=== PATIENT | female | born 1960 | race Caucasian/White ===

== ENCOUNTER 2021-05-26 08:43 | Outpatient (REF) | payer OTHER, SELFPAY ==
--- NOTE | 2021-05-28 13:21 | MHC.AU.ANO ---
Adult Audiological Evaluation Date of Visit: 05/26/21 Grounds Caretaker Used: Not Applicable Reason for Appointment: Audiologic evaluation due to question of decreased hearing ability. Yecenia reports her family has noticed she frequently asks for speech to be repeated. She notes both her parents had significant hearing loss when she was growing up so she is used to increasing the volume of the television and uses the closed caption, and she says she usually speaks loudly with hand gestures. Yecenia thinks allergy symptoms may also cause more hearing difficulty. Does patient feel they have a hearing loss?: Yes If Yes, Which Ear?: Both Ears Has hearing been tested previously?: No Hearing Handicap Inventory: HHIE SCORE: 10 Based on HHIE score, patient has: Mild to moderate perceived hearing handicap Ear History: Family History of Hearing Loss?: Yes: Parents History of occupational noise exposure?: Yes: [employer] work for [employer] during college History: History: No Medical History: Medical History: Breast cancer treated only with surgery, Headache, Heart Problems (Atrial Fibrilation), High Blood Pressure, Migraines Medication List: Yany, Tamoxifen, Eliquis, Famotidine, Metoprolol, Losartan, Vitamin, Tylenol and Lorazepam as needed Otoscopy: Right Ear: Unremarkable Left Ear: Unremarkable Tympanometry: Tympanometry performed due to: To assess integrity of the middle ear system Right Ear: Normal Middle Ear System (Type A) Left Ear: Normal Middle Ear System (Type A) Otoacoustic Emissions Frequency Range Used: 1.6-8 kHz Right Ear Results: Present 4812-3146 Hz, Absent 8000 Hz Analysis: Present emissions suggest normal cochlear function Left Ear Results: Present 6656-0848 Hz, Absent 8000 Hz Analysis: Present emissions suggest normal cochlear function Hearing Evaluation: Transducer(s) Used: Circumaural Headphones Method: Conventional Audiometry Stimuli Used: Pure Tones Right Ear: Description of Hearing: Normal hearing thresholds 250-8000 Hz Left Ear: Description of Hearing: Normal hearing thresholds 250-8000 Hz Speech Recognition Threshold (SRT): Method Used: Monitored Live Voice Stimuli Used: Spondee Words Right Ear: 5 dB HL Left Ear: 5 dB HL Word Discrimination: Method: Recorded Lists Word Lists Used: NU-6 Right Ear: 100% at 50 dB HL Left Ear: 100% at 50 dB HL QuickSIN: Binaural Quick SIN Test: 1 dB SNR Loss falls within the normal range suggesting Yecenia does not experience any more difficulty than expected understanding speech with increasing levels of background noise in this controlled test environment. Interpretation of Results: Given the normal hearing thresholds and speech understanding in both quiet and in noise, she may be increasing the volume of the television, using hand gestures, and may be a more visual person because she grew up with hearing impaired parents. Discussed the difference between hearing and listening and the role of attention plays with these skills. Discussed and provided a handout of communication strategies to use to improve speech understanding when needed. Recommendations: No further audiological action is indicated at this time. Audiologic re-evaluation if changes in hearing are suspected Diagnosis: Primary Diagnosis: H93.293 (Concern of) Abnormal Auditory Perception Services Performed: Comprehensive Audiological Evaluation (CPT 60439) Diagnostic Otoacoustic Emissions (CPT 47877, 26+TC) Tympanometry (CPT 40010) Signature: Provider: Mary Ellen Gil, CCC-A
== END 2021-05-26 08:44 | disposition home or self-care (01) ==
LOC: HO.SH 08:43
PROVIDERS: PCP Internal Medicine; Visit Provider Internal Medicine
DX: H93.293 Other abnormal auditory perceptions, bilateral (principal)
CPT/HCPCS: 92557; 92567; 92588

== ENCOUNTER 2025-02-25 10:25 | Outpatient (AMB) | payer OTHER, SELFPAY ==
--- NOTE | 2025-02-25 10:55 | MHC.PC.OV ---
Vital Signs 02/25/25 11:02 Height 5 ft 3.7 in Weight 213 lb BMI 36.9 BP 110/68 Blood Pressure Location Rt brachial Position Sitting Respiration 14 Pulse 67 Pulse Source Pulse Oximeter Temp 98.8 F Temp Source Oral Pulse Oximetry (%) 97 Oxygen Delivery Method Room Air Intake Visit Reasons: est care Intake Note: New patient visit Electrical Controls Engineer Required: No Allergies cortisone Allergy (Intermediate, Verified 02/25/25 10:59) Chest Pain Tobacco use date assessed: 02/25/25 Dental Screening Dental Screen Date: 02/25/25 Did you have a dental visit in the last 12 months?: Yes Did you have a dental problem in the last 6 months where you did not have access to dental care?: No Was dental information given to patient?: Patient has dentist HPI HPI Comments History of Present Illness Details The patient is a 64 year old female with a past medical history of afibrillation, hypertension, hyperlipidemia TARIQ, depression/anxiety, presenting to [facility] care CV: On eliqus, losartan, lopressor, simvastatin. Follows with PVC. Denies chest pain, shortness of breath TARIQ: on cpap. Heme/Onc: History of breast cancer. Breast surgeon, oncologist released her from surveillance. Still gets annual mammograms, she is slightly overdue MSK: Increasing pain in bilateral wrist, base of thumb and as well in lateral dorsal wrist. Likes to hill/knit but has had to stop. She is intolerant of cortisone injections. Would like to consider ortho GERD is stable on omeprazole. BH was started on lexapro when she was taking care of her father who passed. She may try to come off the medication. History of abnormal tfts. She has been intolerant of levothyroxine in the past-palpitations Mammo 09/2023 Colonoscopy 2021. ROS see HPI PHYSICAL EXAM: GENERAL: Alert and oriented x 3. NAD EYES: EOMI. Anicteric. HENT: Moist mucous membranes. No scleral icterus. No cervical lymphadenopathy. LUNGS: Clear to auscultation bilaterally. CARDIOVASCULAR: Regular rate and rhythm. No murmur. No JVD. ABDOMEN: Soft, non-tender +bs EXTREMITIES: No edema. Non-tender. SKIN: No rashes or lesions. Warm. NEUROLOGIC: No focal neurological deficits. CN II-XII grossly intact PSYCHIATRIC: Cooperative. 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 1. Little interest or pleasure in doing things: not at all 2. Feeling down, depressed, or hopeless: not at all 3. Trouble falling or staying asleep, or sleeping too much: more than half the days 4. Feeling tired or having little energy: more than half the days 5. Poor appetite or overeating: more than half the days 6. Feeling bad about yourself - or that you are a failure or have let yourself or your family down: several days 7. Trouble concentrating on things, such as reading the newspaper or watching television: not at all 8. Moving or speaking so slowly that other people could have noticed. Or the opposite - being so fidgety or restless that you have been moving around a lot more than usual: not at all 9. Thoughts that you would be better off or of hurting yourself in some way: not at all Total score: 7 Depression Screening Interpretation: Positive Depression Screening Done: Yes 19236 - PHQ-9 Billing: Yes Source: Developed by Drs. Ramiro Boyd, Terri Zhang, Giancarlo Otoole and colleagues, with an educational ed from [employer]. Thrive Questionnaire Date Thrive assessed: 02/19/25 I am a: Patient What is your living situation today?: I have a steady place to live Within the past 12 months, did the food you bought not last and you didn't have the money to get more?: Never true Within the past 12 months, did you worry whether your food would run out before you got money to buy more?: Never true Do you have trouble paying for medicines?: No Do you have trouble getting transportation to medical appointments?: No Do you have trouble paying your heating and electricity bill?: No Do you have trouble taking care of your child, family member or friend?: No Do you have trouble with day-to-day activities such as bathing, preparing meals, shopping, managing finances, etc.?: No Are you currently unemployed and looking for a job?: No Are you interested in more education?: No Please select the resources that you would like help with: None Currently or been in a relationship where the following occur: No concerns reported THRIVE Score: 0 AUDIT C Alcohol Use Questionnaire (AUDIT-C) 1. How often do you have a drink containing alcohol?: Never 2. How many drinks containing alcohol do you have on a typical day when you are drinking?: 1 or 2 3. How often do you have six or more drinks on one occasion?: Never Total Score: 0 FREDDIE-7 AMB Questionnaire FREDDIE-7 Date FREDDIE - 7 assessed: 02/25/25 Feeling nervous, anxious, or on edge: 1 = Several days Not being able to stop or control worryin = Not at all Worrying too much about different things: 1 = Several days Trouble relaxin = Not at all Being so restless that it is hard to sit still: 0 = Not at all Becoming easily annoyed or irritable: 0 = Not at all Feeling afraid as if something awful might happen: 0 = Not at all Total FREDDIE-7 score (0-4 normal; 5-9 mild; 10-14 moderate; 15-21 severe): 2 Source: Developed by Drs. Ramiro Boyd, Terri Zhang, Giancarlo Otoole and colleagues, with an educational ed from [employer]. FREDDIE-7 Assessment Billing FREDDIE-7 Assessment Tool: FREDDIE-7 Assessment 28385 Physical exam (Primary Care) Vital Signs: Last Vital Signs Temp 98.8 F 02/25/25 11:02 Pulse 67 02/25/25 11:02 Resp 14 02/25/25 11:02 BP 110/68 02/25/25 11:02 Pulse Ox 97 02/25/25 11:02 Oxygen Delivery Method Room Air 02/25/25 11:02 BMI result Body Mass Index 36.9 Tobacco/Smoking Status: Tobacco use Status Tobacco use date assessed 02/25/25 02/25/25 11:11 Patient Tobacco Use Status Never used Tobacco 02/25/25 11:11 e-Cigarette/Vaping Use Never Used 02/25/25 11:11 PHQ-9: PHQ-9 Score PHQ-9: Total score 7 02/25/25 16:39 Depression Screening Interpretation: Positive Thrive Assessment: Date of Thrive Assessment Date Thrive assessed 02/19/25 02/25/25 11:11 Currently or been in a relationship where the following occur: No concerns reported Coding Level of Care Code New Pt Level 4 (89120) Complex EM visit Add On G2211 Diagnoses Atrial fibrillation and flutter I48.91; I48.92 Prediabetes R73.03 Hypothyroidism, unspecified type E03.9 Hypothyroidism type: unspecified 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 CMC (carpometacarpal) synovitis M65.939 Additional Codes FREDDIE-7 Assessment Billing - FREDDIE-7 Assessment Tool: FREDDIE-7 Assessment 09377 ([id number]) PHQ-9 - 05181 - PHQ-9 Billing: Yes ([id number]) Assessment & Plan Assessment & Plan (1) Atrial fibrillation and flutter: Code(s): I48.91 - Unspecified atrial fibrillation; I48.92 - Unspecified atrial flutter Category: Medical (2) Prediabetes: Code(s): R73.03 - Prediabetes Category: Medical (3) Hypothyroid: Code(s): E03.9 - Hypothyroidism, unspecified Category: Medical Qualifiers: Hypothyroidism type: unspecified Qualified Code(s): E03.9 - Hypothyroidism, unspecified (4) History of ductal carcinoma in situ (DCIS) of breast: Code(s): Z86.000 - Personal history of in-situ neoplasm of breast Category: Medical (5) CMC (carpometacarpal) synovitis: Code(s): M65.939 - Unspecified synovitis and tenosynovitis, unspecified forearm Category: Medical Plan 64 yo to establish care past medical, surgical, social reviewed CV-continue cardiology follow up. bp controlled BH -she consider stopping medication by decreasing to every other day and stopping after one to two weeks She has CMC as well as lateral wrist pain. referral placed Labs ordered Hypothyroid-previously sensitive to medications Orders: Orders MM screening mammo BI Today Z12.31 - Encounter for screening mammogram for malignant neoplasm of breast Hemoglobin A1c Today E03.9 - Hypothyroidism, unspecified, R73.03 - Prediabetes Complete Blood Count Auto Diff 6 Months E03.9 - Hypothyroidism, unspecified, I48.91 - Unspecified atrial fibrillation, I48.92 - Unspecified atrial flutter, K63.5 - Polyp of colon, R73.03 - Prediabetes Lipid Panel 6 Months E03.9 - Hypothyroidism, unspecified, I48.91 - Unspecified atrial fibrillation, I48.92 - Unspecified atrial flutter, K63.5 - Polyp of colon, R73.03 - Prediabetes Hemoglobin A1c 6 Months E03.9 - Hypothyroidism, unspecified, I48.91 - Unspecified atrial fibrillation, I48.92 - Unspecified atrial flutter, K63.5 - Polyp of colon, R73.03 - Prediabetes TSH reflex Free T4 Today E03.9 - Hypothyroidism, unspecified, R73.03 - Prediabetes Thyroid Peroxidase Antibodies Today E03.9 - Hypothyroidism, unspecified, R73.03 - Prediabetes Comprehensive Met. Panel 6 Months E03.9 - Hypothyroidism, unspecified, I48.91 - Unspecified atrial fibrillation, I48.92 - Unspecified atrial flutter, K63.5 - Polyp of colon, R73.03 - Prediabetes TSH reflex Free T4 6 Months E03.9 - Hypothyroidism, unspecified, I48.91 - Unspecified atrial fibrillation, I48.92 - Unspecified atrial flutter, K63.5 - Polyp of colon, R73.03 - Prediabetes Referrals Dermatology Referral L98.9 - Disorder of the skin and subcutaneous tissue, unspecified Gastroenterology Referral K63.5 - Polyp of colon Orthopedics Referral M65.939 - Unspecified synovitis and tenosynovitis, unspecified forearm Medications: New simvastatin 20 mg PO BEDTIME 90 tabs 3RF
[2025-02-25 11:02] VITALS: BP 110/68; PULSE 67; RESP 14; TEMP 37.1; O2SAT 97; BMI 36.9
--- OUTSIDE RECORDS SUMMARY | 2025-02-25 11:07 | XMS_ITS | Clinical Summary ---
Author Organization [facility] Address [address] [place] [address] Care Team Providers Care Seed Tester Name Role Phone Sveta Joshi Primary Care Provider Zara vailable Allergies Active Allergy Reactions Criticality Noted Date Comments Cortisone 12/02/2022 Tape 12/02/2022 Medications Medication Sig Dispensed Refills Start Date End Date Status metoprolol tartrate (LOPRESSOR) 25 MG tablet 0 12/01/2018 Active ELIQUIS 5 MG TABS tablet 0 09/07/2018 Active MAPAP 500 MG tablet TK 2 TS PO TID 0 11/22/2018 A ctive Melatonin 1 MG TABS tablet Take 1 tablet (1 mg total) by mouth every night at bedtime. 0 Active losartan (COZAAR) 100 MG tablet Take 1 tablet (100 mg total) by mouth daily. 0 Active Respiratory Therapy Supplies (CARETOUCH CPAP & BIPAP HOSE) MISC by Does not apply route. 0 Active famotidine (PEPCID) 20 MG tablet Take 1 tablet (20 mg total) by mouth 2 (two) times a day. 0 Active escitalopram (LEXAPRO) 5 MG tablet Take 1 tablet (5 mg total) by mouth daily. 0 Active chlorthalidone (HYGROTON) 25 MG tablet Take 1 tablet (25 mg total) by mouth daily. 0 Active simvastatin (ZOCOR) tablet 20 mg Take 1 tablet (20 mg total) by mouth every night at bedtime. 0 Active omeprazole (PriLOSEC) 20 MG capsule Take 1 capsule (20 mg total) by mouth daily. 0 Active docusate sodium (COLACE) 100 MG capsule Take 1 capsule (100 mg total) by mouth 2 (two) times a day. 0 Active cetirizine (Allergy Relief Cetirizine) 10 MG tablet Take 1 tablet (10 mg total) by mouth daily. 0 Active Multiple Vitamins-Minerals (Centrum Specialist Heart) TABS Take by mouth. 0 Active tamoxifen (NOLVADEX) 20 MG tablet TAKE 1 TABLET BY MOUTH EVERY DAY 90 tablet 2 09/20/2023 Active Active Problems No known active problems Family History Medical History Relation Name Comments Heart disease Brother Heart disease Father Hypertension Father Cancer Mother Diabetes Mother Heart disease Mother Rheumatologic disease Mother Rheumatologic disease Sister Relation Name Status Comments Brother Father Mother Sister Social History Tobacco Use Types Packs/Day Years Used Date Smoking Tobacco: Never Smokeless Tobacco: Never Alcohol Use Standard Drinks/Week Comments No 0 (1 standard drink = 0.6 oz pur e alcohol) Sex and Gender Information Value Date Recorded Sex Assigned at Not on file Gender Identity Not on file Sexual Orientation Not on file Job Start Date Occupation Industry Not on file Not on file Not on file Last Filed Vital Signs Vital Sign Reading Time Taken Comments Blood Pressure 122/59 12/02/2023 11:35 AM EDT Pulse 64 12/02/2023 11:35 AM EDT Temperature 37.2 C (99 F) 12/02/2023 11:35 AM EDT Respiratory Rate - - Oxygen Saturation 96% 12/02/2023 11:35 AM EDT Inhaled Oxygen Concentration - - Weight 88.9 kg (196 lb) 12/02/2023 11:35 AM EDT Height 162.6 cm (5' 4 ) 12/02/2023 11:35 AM EDT Body Mass Index 33.64 12/02/2023 11:35 AM EDT Plan of Treatment Health Maintenance Due Date Last Done Comments Hepatitis C Screening 1961 COVID-19 Vaccine (#1) 06/19/1962 Depression Screening 1973 BMI Counseling 12/19/1979 Preventative Health Evaluation 12/19/1979 Cervical Cancer Screening (Pap Smear) 1982 Colon Cancer Screening (Colonoscopy) 2006 Breast Cancer Screening (Mammogram) 12/19/2011 Shingrix-Zoster Vaccine (1 of 2) 12/19/2011 Influenza Vaccine (Season Ended) 2025 05/25/2023, 05/08/2021, 06/18/2020, Additional history exists DTap / Tdap / Td (2 - Td or Tdap) 07/27/2028 07/27/2018 RSV Adult > 60+ Yrs or (1 - 1-dose 75+ series) 2036 Hepatitis B Vaccines Aged Out No long er eligible based on patient's age to complete this topic Pneumococcal Vaccine Aged Out No long er eligible based on patient's age to complete this topic RSV Ped < 20 months Aged Out No longe r eligible based on patient's age to complete this topic Care Teams Seed Tester Relationship Specialty Start Date End Date Sveta Joshi PCP - General Internal Medicine 11/27/18
== END 2025-02-25 11:43 | disposition home or self-care (01) ==
LOC: HO.HMCFM 10:26
PROVIDERS: PCP Internal Medicine; Visit Provider Internal Medicine
DX: I48.91 Unspecified atrial fibrillation (principal); I48.92 Unspecified atrial flutter; R73.03 Prediabetes; E03.9 Hypothyroidism, unspecified; Z86.000 Personal history of in-situ neoplasm of breast; M65.939 Unspecified synovitis and tenosynovitis, unspecified forearm

== ENCOUNTER → 2025-02-25 10:25 | Outpatient (BNVA) | payer OTHER, SELFPAY | PROVIDERS: PCP Internal Medicine; Visit Provider Internal Medicine | DX: I48.91 Unspecified atrial fibrillation (principal); R73.03 Prediabetes; E03.9 Hypothyroidism, unspecified; Z86.000 Personal history of in-situ neoplasm of breast; M65.939 Unspecified synovitis and tenosynovitis, unspecified forearm | CPT/HCPCS: 96127; 99202 ==

== ENCOUNTER 2025-02-28 11:13 | Outpatient (REF) | payer OTHER, SELFPAY ==
--- OUTSIDE RECORDS SUMMARY | 2025-02-28 12:02 | XMS_ITS | Encounter Summary ---
Author Organization [facility] Address [address] [place] [address] Care Team Providers Care Sheep Or Calf Grader Name Role Phone Yuki Cisse MD Primary Care Provider Reason for Visit * Reason Onset Date Comments information needed 02/26/2025 Encounter Details Date Type Department Care Team (Late st Contact Info) Description 02/26/2025 Telephone Gastroenterology - [place] [address] [facility] [address] [place] [id number] Beatrice Feliz MD [address] [facility] [address] [place], [place] [phone] information needed Social History Tobacco Use Types Packs/Day Years Used Date Smoking Tobacco: Never Smokeless Tobacco: Never Alcohol Use Standard Drinks/Week Comments No 0 (1 standard drink = 0.6 oz pur e alcohol) Comments Unknown Sex and Gender Information Value Date Recorded Sex Assigned at Not on file Legal Sex Female 11:23 PM EST Gender Identity Not on file Sexual Orientation Not on file documented as of this encounter Progress Notes * Chiquita Agustin - 02/27/2025 10:18 AM EDT 2nd request faxed for med list * Chiquita Agustin - 02/26/2025 2:47 PM EDT Records received from [facility], missing med list, faxed & placed in missing folder - [place] documented in this encounter Plan of Treatment Not on file documented as of this encounter Visit Diagnoses Not on filedocumented in this encounter Care Teams Sheep Or Calf Grader Relationship Specialty Start Date End Date Yuki Cisse MD [address] [place] [address] PCP - General Internal Medicine 02/26/25 documented as of this encounter
--- OUTSIDE RECORDS SUMMARY | 2025-02-28 12:02 | XMS_ITS | Clinical Summary ---
Author Organization [facility] Address [address] [place] [address] Care Team Providers Care Pierogi Maker Name Role Phone Sveta Joshi Primary Care [...] age to complete this topic Care Teams Pierogi Maker Relationship Specialty Start Date End Date Sveta Joshi PCP - General Internal Medicine 11/27/18
[2025-02-28 14:46] LABS: MANUAL DIFF FLAG NO
[2025-02-28 15:03] LABS: Hematocrit 32.4 % (37.0-47.0); Hemoglobin 10.0 g/dl (12.0-16.0); Imm Gran Abs Auto 0.01 X10*3/uL (0.00-0.03); Imm Gran Pct Auto 0.3 % (0.0-0.4); Lymphocytes Absolute Auto 1.5 X10*3/uL (1.2-4.9); Mean Corpuscular HGB Conc 30.9 g/dl (31.0-35.0); Mean Corpuscular Hemoglobin 23.7 pg (27.0-33.0); Mean Corpuscular Volume 76.8 fL (80.0-98.0); NRBC Abs Auto 0.000 X10*3/uL (0.0-0.012); NRBC Pct Auto 0.0 /100WBC (0.0-0.2); Red Blood Count 4.22 X10*6/uL (4.20-5.50); White Blood Count 3.9 X10*3/uL (4.8-10.8)
[2025-02-28 15:19] LABS: Hemoglobin A1C 112.6301 umol/L; Total Hemoglobin (HGBA1C) 2675.2944 umol/L
[2025-02-28 16:07] LABS: Alanine Aminotransferase 45 U/L (0-31); Albumin Level 4.0 g/dL (3.5-5.0); Alkaline Phosphatase 68 U/L (39-117); Anion Gap 11 (12-20); Aspartate Amino Transferase 62 U/L (5-31); Blood Urea Nitrogen 14 mg/dL (9-16); Calcium 8.8 mg/dL (8.4-10.2); Carbon Dioxide 24 mmol/L (22-29); Chloride 107 mmol/L (96-108); Cholesterol 142 mg/dL (<200); Estimated Glomerular Filt Rate > 60; HDL Cholesterol 42 mg/dL (>40); Potassium 4.4 mmol/L (3.3-5.1); Sodium 138 mmol/L (135-145); Total Protein 6.8 g/dL (6.5-8.0); Triglycerides 108 mg/dL (<150)
[2025-02-28 16:13] LABS: Platelet Count 80 X10*3/uL (160-400)
== END 2025-02-28 11:14 | disposition home or self-care (01) ==
LOC: HO.WFDLDS 11:13
PROVIDERS: Visit Provider Internal Medicine
DX: I48.91 Unspecified atrial fibrillation (principal); I48.92 Unspecified atrial flutter; R73.03 Prediabetes; E03.9 Hypothyroidism, unspecified; K63.5 Polyp of colon
CPT/HCPCS: 36415; 80053; 80061; 83036; 84443; 85025; 86376

== ENCOUNTER → 2025-04-11 10:55 | Outpatient (BNV) | payer OTHER, SELFPAY | PROVIDERS: Visit Provider Internal Medicine Medical Oncology | DX: Z86.2 Personal history of diseases of the blood and blood-forming organs and certain disorders involving the immune mechanism (principal); Z86.000 Personal history of in-situ neoplasm of breast | CPT/HCPCS: 99204 ==

== ENCOUNTER 2025-04-15 08:22 | Outpatient (REF) | payer OTHER, SELFPAY ==
--- NOTE | ~2025-04-15 | US_ITS ---
CLINICAL HISTORY: R79.89 - Other specified abnormal findings of blood chemistry US abdomen limited Comparison: None provided Findings: The visualized pancreas is normal. The visualized IVC is unremarkable. Liver length 17.7 cm. Hypoechoic, heterogeneous liver parenchyma. Multiple liver cysts are present, the largest measuring 1.7 cm in size, located within the right lobe. There is no intrahepatic bile duct dilatation. The common duct is 8 mm in diameter. Status post cholecystectomy. The right kidney is 11.6 cm in length. No ascites. IMPRESSION: Hepatomegaly with fatty infiltration of the liver. This document has been electronically signed by: Sharda Woodward MD on 04/15/2025 16:05:48
--- OUTSIDE RECORDS SUMMARY | 2025-04-15 08:45 | XMS_ITS ---
Author Name [facility] Organization Unknown Care Team Organization Name Specialty Phone Email Start Date End Da te [facility] Millie Bhandari MD Primary Care 07/06/2022 04/16/2024
--- OUTSIDE RECORDS SUMMARY | 2025-04-15 08:45 | XMS_ITS | Clinical Summary ---
Author Organization [facility] Address [address] [place] [address] Care Team Providers Care Automotive Window Tinter Name Role Phone Sveta Joshi Primary Care [...] Vaccine (1 of 2) 12/19/2011 Influenza Vaccine (#1) 2025 3, 05/08/2021, 06/18/2020, Additional history exists DTap / [...] age to complete this topic Care Teams Automotive Window Tinter Relationship Specialty Start Date End Date Sveta Joshi PCP - General Internal Medicine 11/27/18
--- OUTSIDE RECORDS SUMMARY | 2025-04-15 08:45 | XMS_ITS | Clinical Summary ---
Author Organization [facility] Address [address] [place] [address] Phone Care Team Providers Care Civil Laboratory Technician Name Role Phone Yuki Cisse MD Primary Care Provider [phone] Allergies Active Allergy Reactions Criticality Noted Date Comments Adhesive Rash High 09/21/2018 Sensitive to tape used in medical procedures; second degree burn from tape 06/2018 after breast biopsy Cortisone 08/18/2020 Sharp pain in neck and chest and jaw Pollen Extracts 06/27/2018 Medications fexofenadine/pse udoephedrine (PIERRE-D 24 HOUR ORAL) Take 1 tablet by mouth 1 (one) time each day. Active docusate sodium (COLACE) 100 mg tablet 1 tablet (100 mg total). Active escitalopram (LEXAPRO) 5 mg tablet Take 1 tablet (5 mg total) by mouth 1 (one) time each day. 4 Active multivitamin with minerals (CENTRUM/CERTAVI T) 18-400 mg-mcg tablet tablet Take 1 tablet by mouth 1 (one) time each day. Active losartan (COZAAR) 100 mg tablet Take 1 tablet (100 mg total) by mouth 1 (one) time each day. 4 Active metoprolol tartrate (LOPRESSOR) 25 mg tablet Take 1 tablet (25 mg total) by mouth 2 (two) times a day. 9 Active omeprazole (PriLOSEC) [address] capsule Take 1 capsule (20 mg total) by mouth 1 (one) time each day. 4 Active simvastatin (ZOCOR) 20 mg tablet Take 1 tablet (20 mg total) by mouth at bedtime. 4 Active turmeric root extract 500 mg capsule Take 1 tablet by mouth 1 (one) time each day. Active miscellaneous medical supply [facility] CPAP HISTORICAL (HISTORICAL CPAP): Inhale into the lungs. Regional perssure 14 Active apixaban (Eliquis) 5 mg tablet Take 1 Tablet by mouth 2 Times Daily. 4 Active clotrimazole (LOTRIMIN) 1 % cream Use 1 gram to affected area 2 times a day prn itch/rash 3 Active fluticasone propionate (FLONASE) 50 mcg/actuation nasal spray 2 Sprays by Each Nare route daily. 3 Active acetaminophen (TYLENOL) 325 mg suppository Insert into the rectum every 6 (six) hours if needed for mild pain. Active KRILL OIL ORAL Take by mouth. Active Active Problems Problem Noted Date Diagnosed Date Hernia of abdominal wall 11/23/2023 Hx laparoscopic cholecystectomy 05/25/2023 Anxiety 11/05/2021 Trigger thumb, left thumb 06/28/2021 Chest pressure 01/22/2021 Overview (06/14/2024): Last Assessment & Plan: She is having intermittent chest pressure for a few months. Due to risk factors, I will arrange stress test. At the meantime, I encouraged her to be more active to see whether she has exertion related symptoms. Bursitis, shoulder 08/18/2020 Endometriosis 06/06/2020 Overview (06/14/2024): Stage 4 seen in scope 05/2020 Ductal carcinoma in situ (DCIS) of left breast 0 11/03/2018 Overview (06/14/2024): Lumpectomy, and then mastectomy Class 2 obesity 06/08/2018 Obstructive sleep apnea 05/04/2018 Overview (06/14/2024): [facility] Home Polysomnogram: Date 05/02/2018; AHI 22, Unclassified apneas 30; Obstructive apneas 6; Central apneas 13; Mixed apneas 0; hypopneas 83; average oxygen saturation 94% (lowest 82% without saturations <88% for 5% or more of study) [facility] Polysomnogram treatment study. Date 05/28/2018 . SE 47 % SM 49 %; spent 3 % of the study in REM. On CPAP @ 14; RDI 1.7 (AHI 1.7), Central apneas 1; Obstructive apneas 0; Mixed apneas 0; hypopneas 0; RERAs 0; and, average oxygen saturation was 95%. For the entire study, PLMs ~13. - Obstructive Sleep Apnea - moderate; mostly hypopneas with unclassified and central apneas; without sleep related hypoventilation by 2018 home polysomnogram. CPAP @ 14 recommended. Atrial fibrillation (CMS/HCC V24, CMS/HCC V28) 0 04/18/2018 Overview (06/14/2024): S/p electrical cardioversion Rate control strategy with metoprolol Anticoagulated with apixaban Last Assessment & Plan: No evidence of recurrent sustained atrial fibrillation. She has been on Eliquis and low-dose metoprolol. Will continue current regimen. Continue sleep apnea treatment and monitor for symptom. She will see her new primary care physician by end of this week and likely to have complete labs. Essential hypertension 04/18/2018 Overview (06/14/2024): Last Assessment & Plan: Well-controlled. Will discontinue chlorthalidone. Will repeat BMP in 2 weeks after stopping chlorthalidone.. Hyperlipidemia 04/18/2018 Overview (06/14/2024): ASCVD 3.7% Last Assessment & Plan: Patient's goal LDL is greater than 100. Continue statin and dietary modification along with her exercise. Encounters Date Type Department Care Team Description 03/06/2025 Telephone Gastroenterology - [place] 175 [facility] [address] [id number] Beatrice Feliz MD special procedure 02/26/2025 Telephone Gastroenterology [facility] 175 [place] [address] [id number] Beatrice Feliz MD information needed from Last 3 Months Immunizations Name Administration Dates Next Due COVID-19 (Moderna/Spikevax) 12yo and older 08/09/2023 Influenza Quadravalent, MDCK , 0.5ml, preservative free (Flucelvax) 6mo and older 05/25/2023,05/08/2021,06/18/2020 Influenza trivalent, 0.5mL, preservative free (Fluarix; FluLaval; Fluzone) ages 6mo and older (Afluria) 3 years and older 05/13/2018 Influenza, Unspecified 05/16/2024,06/02/2022,07/2021 Moderna SARS-CoV-2 COVID-19, mRNA, LNP-S, preservative free 07/29/2022,04/12/2022,08/20/2021,2020 RSV, bivalent, protein subun it RSVpreF, 0.5mL, Preservative Free (Arexvy) 60yo and older 08/09/2023 Tdap Tetanus diptheria acell ular pertussis (Boostrix; Adacel) 7yo and older 07/27/2018 Surgical History Surgery Date Site/Laterality Comments OTHER SURGICAL HISTORY 10/2018 Left PROCEDURE: VT EXC CYST/ABERRANT BREAST TISSUE OPEN LESION MASTECTOMY 03/22/2019 Left PROCEDURE: HISTORICAL MASTECTOMY; COMMENT: Dr. Mohan BREAST BIOPSY PROCEDURE: BX BREAST; PERC NEEDLE CORE W/IMAG GUID BREAST SURGERY PROCEDURE: VT UNLISTED PROCEDURE BREAST; COMMENT: lt mastectomy 02/2019 HYSTERECTOMY PROCEDURE: HISTORICAL HYSTERECTOMY Medical History Medical History Date Comments Atrial fibrillation (CMS/HCC V24, CMS/HCC V28) 04/18/2018 DX:Atrial fibrillation (HCC) Essential hypertension 04/18/2018 DX:Essent ial hypertension Hyperlipidemia 04/18/2018 DX:Hyperlipidemi a FH: consanguinity 08/08/2018 DX:FH: consang uinity; COMMENT: maternal grandparents are second cousins to each other Mass of breast, left 09/21/2018 DX:Mass of breast, left; COMMENT: Superior lateral on MRI Ductal carcinoma in situ (DC IS) of left breast 11/03/2018 DX:Ductal carcinoma in situ (DCIS) of left breast Bursitis DX:Bursitis; COM MENT: shoulder, left Sleep apnea DX:Sleep apnea; COMMENT: wears cpap Personal history of malignan t neoplasm of breast DX:Personal history of malig nant neoplasm of breast; COMMENT: dx 10/2018 lt side Anxiety state DX:Anxiety state Malignant neoplasm of female breast (CMS/HCC V24, CMS/HCC V28) DX:Malignant neoplasm of fe male breast (HCC) Cervical spondylosis without myelopathy DX:Cervical spondylosis with out myelopathy Esophageal reflux DX:Esophageal reflux Anxiety 11/05/2021 DX:Anxiety Family History Medical History Relation Name Comments Other: HIV Brother 1 Other: heart attack Brother 2 No Known Problems Brother 3 CABG Father Dementia Father Hypertension Father Breast cancer Mother dx'd 50s bilateral Diabetes Mother dx'd 50s from compl ications of DM- renal failureat age 72 Heart attack Mother dx'd 50s Heart failure Mother dx'd 50s Other: blood cancer Mother dx'd 50s Other: gastric cancer Mother dx'd 50s Other: seasonal allergies Mother dx'd 50s Breast cancer Other 1 maternal aunt; unilateral Other cancer Other 2 paternal first cousin Other: Neurologic disease Sister Relation Name Status Comments Brother 1 Alive Brother 2 Alive Brother 3 Alive Father Alive Maternal Grandfather Maternal Grandmother Mother dx'd 50s [place] at the time of the pt's , and then CHF/Cardiac arrest after travel 60's Other 1 Other 2 Paternal Grandfather Paternal Grandmother Sister Alive Social History Tobacco Use Types Packs/Day Years Used Date Smoking Tobacco: Never Smokeless Tobacco: Never Alcohol Use Standard Drinks/Week Comments No 0 (1 standard drink = 0.6 oz pur e alcohol) Comments Unknown Sex and Gender Information Value Date Recorded Sex Assigned at Not on file Legal Sex Female 11:23 PM EST Gender Identity Not on file Sexual Orientation Not on file Obstetrics History Last Filed Vital Signs Vital Sign Reading Time Taken Comments Blood Pressure 137/68 06/21/2024 3:10 PM EDT Pulse 81 06/21/2024 3:10 PM EDT Temperature - - Respiratory Rate - - Oxygen Saturation - - Inhaled Oxygen Concentration - - Weight 91.5 kg (201 lb 12.8 oz) 024 12:56 PM EDT Height 162.6 cm (5' 4 ) 05/25/2024 12:5 6 PM EDT Body Mass Index 34.64 05/25/2024 12:56 PM EDT Plan of Treatment Upcoming Encounters Date Type Department Care Team (Late st Contact Info) Description 05/09/2025 1:10 PM EDT Office Visit [facility] [address] [facility] [address] [place] [phone] Myranda Boateng NP [address] [place] [address] 06/13/2025 12:30 PM EDT Appointment [facility] [address] [place] [phone] Beatrice Feliz MD [address] [facility] [address] [place] [address] Health Maintenance Due Date Last Done Comments Pneumococcal Vaccine: 50+ Years (1 of 2 - PCV) 1980 Zoster Vaccines (1 of 2) 1980 Breast Cancer Screening 07/09/2021 07/09/20 19, 10/25/2018, 07/26/2018, Additional history exists HIV Screening 08/07/2022 Social Influencers of Health Screening 08/07/2022 COVID-19 Vaccine ( season) 2024 08/09/2023, 07/29/2022, 04/12/2022, Additional history exists Depression Screening 08/29/2024 05/29/2024 Hypertension/CHF/CAD Annual BMP Blood Test 11/22/2024 11/23/2023 Colorectal Cancer Screening: Colonoscopy 12/22/2024 12/22/2021 Influenza Vaccine (#1) 2025 , 05/25/2023, 06/02/2022, Additional history exists Cervical Cancer Screening: HPV 10/14/2027 10/14/2022 DTaP,Tdap,and Td Vaccines (2 - Td or Tdap) 07/27/2028 07/27/2018 Cholesterol Screening (Lipid Panel) 09/01/2028 09/01/2023 Hepatitis C Screening Completed 04/26/2018 RSV Immunization Adult Patients Completed 08/09/2023 HIB Vaccines Aged Out No longer eligi ble based on patient's age to complete this topic HPV Vaccines Aged Out No longer eligi ble based on patient's age to complete this topic Hepatitis A Vaccines Aged Out No long er eligible based on patient's age to complete this topic Hepatitis B Vaccines Aged Out No long er eligible based on patient's age to complete this topic IPV Vaccines Aged Out No longer eligi ble based on patient's age to complete this topic MMR Vaccines Aged Out No longer eligi ble based on patient's age to complete this topic Meningococcal ACWY Vaccine Aged Out N o longer eligible based on patient's age to complete this topic Meningococcal B Vaccine Aged Out No l onger eligible based on patient's age to complete this topic RSV Immunization Patients Under 20 months Aged Out No longer eligible based on patient's age to complete this topic Varicella Vaccines Aged Out No longer eligible based on patient's age to complete this topic Procedures Procedure Name Priority Date/Time Associated Diagnosis Comments DEPRESSION SCREENING Routine 05/29/2024 ANNUAL BMP BLOOD TEST Routine 11/23/2023 LIPID PANEL Routine 09/01/2023 HPV Routine 10/14/2022 COLONOSCOPY Routine 12/22/2021 SCR MAMMO BI INCL CAD Routine 07/09/2019 9:13 AM EST Encounter for screening mammogram for malignant neoplasm of breast HEPATITIS C SCREENING Routine 04/26/2018 from Last 3 Months or Most Recently Relevant to Health Maintenance Results * Depression Screening (05/29/2024) Depression Screening Abstracted us Historical Provider HEALTH MAINTENANCE Final Result * Annual BMP Blood Test (11/23/2023) Annual BMP Blood Test Abstracted us Historical Provider [facility] Final Result * (ABNORMAL) Lipid panel (09/01/2023) Pathologist [facility] LDL/HDL Ratio 3 0 - 4 Triglycerides 103 0 - 150 mg/dL Cholesterol 109 0 - 200 mg/dL HDL 39(A) >=40 mg/dL LDL Cholesterol 50 0 - 100 mg/dL Blood Venous blood specimen / Unknown Result [facility] Provider DC LAB BLOOD ORDERABLES Letha l Result * Cervical Cancer Screening: HPV (10/14/2022) Pathologist [facility] Cervical Cancer Screening: HPV Abstracted ,Negative Result [facility] Final Result * Colonoscopy (12/22/2021) Pathologist [facility] Colonoscopy Abstracted, No interpretation Anatomical Region Laterality Modality Other Result [facility] Final Result * SCR MAMMO BI INCL CAD (07/09/2019 9:13 AM EST) Anatomical Region Laterality Modality Radiographic Rosi ging 07/04/2018 9:19 AM EST Narrative 07/09/2019 1:51 PM EST This is a summary report. The complete report is available in the patient's medical record. If you cannot access the medical record, please contact the sending organization for a detailed fax or copy. Full field digital screening mammography of the left breast, reviewed with CAD and compared to previous. The patient is status post left mastectomy. The breast is composed of fatty and fibroglandular tissue. No suspicious mass, architectural distortion or suspicious calcifications are identified. IMPRESSION: : No mammographic evidence of malignancy in the right breast. BIRADS 1-Negative 5 year breast cancer risk assessment N/A Lifetime breast cancer risk assessment N/A Breast cancer risk category Breast cancer risk not assessed Procedure Note Pippa Fagan - 08/17/2022 This is a summary report. The complete report is available in thepatient's medical record. If you cannot access the medical record, pleasecontact the sending organization for a detailed fax or copy. Full field digital screening mammography of the left breast, reviewed withCAD and compared to previous. The patient is status post left mastectomy.The breast is composed of fatty and fibroglandular tissue. No suspiciousmass, architectural distortion or suspicious calcifications areidentified. IMPRESSION: : No mammographic evidence of malignancy in the right breast. BIRADS 1-Negative 5 year breast cancer risk assessment N/A Lifetime breast cancer risk assessment N/A Breast cancer risk category Breast cancer risk not assessed Nisha GARCÍA IMG XR PROCEDURES Final Resu lt * Hepatitis C Screening (04/26/2018) [facility] Hepatitis C Screening Abstracted Historical Provider HEALTH MAINTENANCE Final Result from Last 3 Months or Most Recently Relevant to Health Maintenance Insurance [facility] [employer] Advance Directives Documents on File Type Date Recorded Patient Shuttle Final Inspector Expl anation Health Care Decision (hx) 01/05/2019 AD KELLY DIRECTIVE Health Care Decision (hx) 01/05/2019 AD KELLY DIRECTIVE Health Care Decision (hx) 01/05/2019 AD KELLY DIRECTIVE Health Care Decision (hx) 01/05/2019 AD KELLY DIRECTIVE Health Care Decision (hx) 01/05/2019 AD KELLY DIRECTIVE Health Care Decision (hx) 01/05/2019 AD KELLY DIRECTIVE Health Care Decision (hx) 01/05/2019 AD KELLY DIRECTIVE Health Care Decision (hx) 01/05/2019 AD KELLY DIRECTIVE Health Care Decision (hx) 01/05/2019 AD KELLY DIRECTIVE Health Care Decision (hx) 01/05/2019 AD KELLY DIRECTIVE Health Care Decision (hx) 01/05/2019 AD KELLY DIRECTIVE Health Care Decision (hx) 01/05/2019 AD KELLY DIRECTIVE Health Care Decision (hx) 01/05/2019 AD KELLY DIRECTIVE Health Care Decision (hx) 01/05/2019 AD KELLY DIRECTIVE Health Care Decision (hx) 01/05/2019 AD KELLY DIRECTIVE Health Care Decision (hx) 01/05/2019 AD KELLY DIRECTIVE Health Care Decision (hx) 01/05/2019 AD KELLY DIRECTIVE Health Care Decision (hx) 01/05/2019 AD KELLY DIRECTIVE Health Care Decision (hx) 01/05/2019 AD KELLY DIRECTIVE Health Care Decision (hx) 01/05/2019 AD KELLY DIRECTIVE Health Care Decision (hx) 01/05/2019 AD KELLY DIRECTIVE Health Care Decision (hx) 01/05/2019 AD KELLY DIRECTIVE Health Care Decision (hx) 01/05/2019 AD KELLY DIRECTIVE Care Teams Civil Laboratory Technician Relationship Specialty Start Date End Date Yuki Cisse MD PCP - General Internal Medicine 02/26/25
== END 2025-04-15 08:23 | disposition home or self-care (01) ==
LOC: HO.US 08:22
PROVIDERS: PCP Internal Medicine; Visit Provider Internal Medicine
DX: R79.89 Other specified abnormal findings of blood chemistry (principal); D61.818 Other pancytopenia
CPT/HCPCS: 76705

== ENCOUNTER → 2025-04-15 08:24 | Outpatient (BNV) | payer OTHER, SELFPAY | PROVIDERS: PCP Internal Medicine; Visit Provider Radiology Diagnostic Radiology | DX: R79.89 Other specified abnormal findings of blood chemistry (principal); K76.0 Fatty (change of) liver, not elsewhere classified; R16.0 Hepatomegaly, not elsewhere classified | CPT/HCPCS: 76705 ==

== ENCOUNTER 2025-05-01 09:41 | Outpatient (REF) | payer OTHER, SELFPAY ==
--- NOTE | ~2025-05-01 | XR_ITS ---
EXAMINATION: XR WRIST, LEFT CLINICAL INFORMATION: M25.532 - Pain in left wrist COMPARISON: None available. TECHNIQUE: PA, lateral, and oblique views of the left wrist. FINDINGS: Normal bone mineralization. There is no fracture, dislocation, or suspicious bone lesion. There is normal carpal alignment. Mild radiocarpal joint space narrowing. Moderate to severe osteoarthrosis at the first CMC joint, and lesser changes at the STT joints. No soft tissue abnormalities. XR/XR wrist LT min 3V IMPRESSION: 1. No acute bony abnormalities. 2. Moderate to severe osteoarthrosis at the first CMC joint. Electronically signed by: Sly Agosto MD 05/01/2025 11:01 AM EDT
--- OUTSIDE RECORDS SUMMARY | 2025-05-01 10:40 | XMS_ITS | Clinical Summary ---
Author Organization [facility] Address [address] [place] [address] Care Team Providers Care Waistline Joiner Lockstitch Name Role Phone Sveta Joshi Primary Care [...] age to complete this topic Care Teams Waistline Joiner Lockstitch Relationship Specialty Start Date End Date Sveta Joshi PCP - General Internal Medicine 11/27/18
--- OUTSIDE RECORDS SUMMARY | 2025-05-01 10:41 | XMS_ITS | Clinical Summary ---
Author Organization [facility] Address [address] [place] [address] Phone Care Team Providers Care Business Applications Developer Name Role Phone Yuki Cisse MD Primary Care Provider [phone] Allergies Active Allergy Reactions Criticality Noted Date [...] time each day. Active miscellaneous medical supply [facility] CPAP HISTORICAL (HISTORICAL CPAP): Inhale into the [...] 06/08/2018 Obstructive sleep apnea 05/04/2018 Overview (06/14/2024): [facility] Home Polysomnogram: Date 05/02/2018; AHI 22, Unclassified apneas 30; Obstructive apneas 6; Central apneas 13; Mixed apneas 0; hypopneas 83; average oxygen saturation 94% (lowest 82% without saturations <88% for 5% or more of study) [facility] [place] [place] Polysomnogram treatment study. Date 05/28/2018 . SE [...] Care Team Description 03/06/2025 Telephone Gastroenterology - [place] 175 [facility] [address] [address] Beatrice Feliz MD 02/26/2025 Telephone Gastroenterology - [place] 175 [facility] 175 [facility] [address] [place] [address] Beatrice Feliz MD from Last 3 Months Immunizations Name Administration [...] Comments OTHER SURGICAL HISTORY 10/2018 Left PROCEDURE: IL EXC CYST/ABERRANT BREAST TISSUE OPEN LESION MASTECTOMY 03/22/2019 Left PROCEDURE: HISTORICAL MASTECTOMY; COMMENT: Dr. Mohan BREAST BIOPSY PROCEDURE: BX BREAST; PERC NEEDLE CORE W/IMAG GUID BREAST SURGERY PROCEDURE: IL UNLISTED PROCEDURE BREAST; COMMENT: lt mastectomy 02/2019 [...] Maternal Grandfather Maternal Grandmother Mother dx'd 50s [facility] at the time of the pt's , [...] Description 05/09/2025 1:10 PM EDT Office Visit [facility] [address] [facility] [address] [place] [address] Myranda Boateng, OMKAR [address] [place] [address] [address] [place] [address] 06/27/2025 8:00 AM EDT Appointment [facility] [address] [place] [address] Beatrice Feliz MD [address] [place] [phone] Health Maintenance Due Date Last Done Comments Pneumococcal Vaccine: 50+ Years (1 of 2 - PCV) 1980 Zoster Vaccines (1 of 2) 1980 Breast Cancer Screening 07/09/2021 07/09/20 19, 10/25/2018, 07/26/2018, Additional history exists HIV Screening 08/07/2022 Social Influencers of Health Screening 08/07/2022 Depression Screening 08/29/2024 05/29/2024 Hypertension/CHF/CAD Annual BMP Blood Test 11/22/2024 11/23/2023 Colorectal Cancer Screening: Colonoscopy 12/22/2024 12/22/2021 COVID-19 Vaccine ( season) 2025 08/09/2023, 07/29/2022, 04/12/2022, Additional history exists Influenza Vaccine (#1) 2025 , 05/25/2023, 06/02/2022, [...] * Depression Screening (05/29/2024) Depression Screening Abstracted Historical Provider HEALTH MAINTENANCE Final Result * Annual BMP Blood Test (11/23/2023) Annual BMP Blood Test Abstracted Historical Provider HEALTH MAINTENANCE Final Result * (ABNORMAL) Lipid panel (09/01/2023) Pathologist [facility] LDL/HDL Ratio 3 0 - 4 Triglycerides 103 0 - 150 mg/dL Cholesterol 109 0 - 200 mg/dL HDL 39(A) >=40 mg/dL LDL Cholesterol 50 0 - 100 mg/dL Blood Venous blood specimen / Unknown [facility] Provider LAB BLOOD ORDERABLES Letha l Result * Cervical Cancer Screening: HPV (10/14/2022) Pathologist [facility] Cervical Cancer Screening: HPV Abstracted ,Negative [facility] Provider [facility] Final Result * Colonoscopy (12/22/2021) Pathologist [facility] Colonoscopy Abstracted, No interpretation Anatomical Region Laterality Modality Other [facility] Provider [facility] Final Result * SCR MAMMO BI INCL [...] risk category Breast cancer risk not assessed us Nisha GARCÍA IMG XR PROCEDURES Final Resu lt * Hepatitis C Screening (04/26/2018) [facility] Hepatitis C Screening Abstracted us Historical Provider HEALTH MAINTENANCE Final Result from Last 3 Months or Most Recently Relevant to Health Maintenance Insurance [facility] [employer] Advance Directives Documents on File Type Date Recorded Patient Board Layer Expl anation Health Care Decision (hx) 01/05/2019 [...] (hx) 01/05/2019 AD KELLY DIRECTIVE Care Teams Business Applications Developer Relationship Specialty Start Date End Date Yuki Cisse MD PCP - General Internal Medicine 02/26/25
== END 2025-05-01 09:42 | disposition home or self-care (01) ==
LOC: HO.HOSX 09:41
PROVIDERS: Visit Provider Orthopaedic Surgery
DX: M18.0 Bilateral primary osteoarthritis of first carpometacarpal joints (principal)
CPT/HCPCS: 73110; 99202

== ENCOUNTER 2025-05-01 09:50 | Outpatient (AMB) | payer OTHER, SELFPAY ==
[2025-05-01 10:23] VITALS: BMI 37.7
--- NOTE | 2025-05-01 10:23 | MHC.OFFVIS ---
Vital Signs 05/01/25 10:23 Height 5 ft 3 in Weight 213 lb BMI 37.7 Intake Visit Reasons: New Pt - B/L wrist pain Intake Note: Yecenia 64 yr old right hand dominant female who is retired, presents today for a new patient visit for bilateral hand pain. States her right is worse than her left. States she is having pain mainly by her CMC joint, pain at her ulnar aspect of hand by her small finger and has radiating pain to her elbow. Patient reports pain is worsen with over use of hands movements. Wakes up with numb finger tips. Patient has tried using braces, but states braces made her pain worse. States she is having numbness, tingling on some nights Hx of right trigger thumb. States her pain on her left hand is on her thumb area but her CMC joint and also radiating pain down her ulnar. Allergies cortisone Allergy (Intermediate, Verified 05/01/25 10:32) Chest Pain adhesive tape Allergy (Verified 05/01/25 10:32) Itching HPI HPI New Pt - B/L wrist pain: Details: Yecenia is a 64 year old right hand dominant woman who presents with complaints of bilateral hand & wrist pain. She has multiple complaints of pain & discomfort today, and we had to work to narrow down her symptoms. When asked to identify what bothers her the most, Most of her pain is at the base of her thumbs. Again there is some pain in the ulnar aspect of her hands. She says in her right arm her pain radiates up into her elbow. She also complains of numbness & tingling in her fingers. She says this happens about once or twice a week and primarily at night. She says she cannot knit or Mikal, and has difficulty lifting a cup of tea. She says she received a cortisone injection in her shoulder and ~2 hours later she felt pain in her chest and radiating up her neck and into her jaw. She says this happened ~2-3 times with shoulder injections, and she says this resolves on its own after a few hours. She denies any cortisone injections to anywhere besides her shoulder. She has Afib and is on [employer] [facility] Medical History (Updated 05/01/25 @ 10:56 by Shey Tapia MD) Sleep apnea Atrial fibrillation History of left breast cancer Endometriosis Hernia Surgical History H/O total mastectomy of left breast Hx laparoscopic cholecystectomy Family History Mother Alcohol abuse Brother Alcohol abuse Other Substance abuse Social History Household Members: Spouse Housing: House Are you a primary behavioral health care manager to a significant other at home: No (for each other) Do you presently have visiting nurse or other home services: No Alcohol intake: current Patient Tobacco Use Status: Never used Tobacco e-Cigarette/Vaping Use: Never Used service: No Current occupational status: retired 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 Cognitive needs: No Hearing needs: No Vision needs: Yes (glasses) Review of Systems Const All systems reviewed & are unremarkable except as noted in HPI and below Physical Exam Vital Signs: BMI result Body Mass Index 37.7 Const General: cooperative, healthy appearing and no acute distress Orientation/consciousness: patient oriented x3 HEENT Head: Yes normocephalic and Yes atraumatic Eyes EOM: EOMs intact bilaterally Resp Effort & Inspection: normal respiratory effort and able to speak in complete sentences Cardio Jugular venous distension: no JVD Skin General skin exam: turgor normal Rashes: no rashes Neuro General: patient oriented x3 Extrem Other: Evaluation of Bilateral Upper Extremity: The patient is alert, oriented, and in no acute distress Neuro: Median, Ulnar, Radial nerves motor and sensory intact and sensation is normal to the tips of all digits No thenar or intrinsic wasting Good APB muscle belly firing and good finger cross Vascular: Cap refill brisk ROM: She can make a fist and extend all her digits No locking or catching Skin: No lacerations or abrasions. General: No Ecchymosis. No Erythema or evidence of infection. Most tender over the basal joint bilaterally Pos shoulder sign Pos CMC grind No a1 christen tenderness No MCP joint tenderness No tenderness over the radial styloid Equivocal Dick test on the left Patient reports pain that radiates from the hand proximally up the forearm bilaterally mostly dorsal, some volar Radiographs: 3 views of the left wrist were taken and viewed by me today in clinic. They show significant basal joint arthritis with joint space narrowing, subchondral sclerosis, and osteophyte formation, there is also a loose body seen. Psych Appearance: grossly normal Affect: normal affect Attitude: cooperative Assessment & Plan Assessment & Plan (1) Arthritis of carpometacarpal (CMC) joint of right thumb: Code(s): M18.11 - Unilateral primary osteoarthritis of first carpometacarpal joint, right hand Category: Medical (2) Arthritis of carpometacarpal (CMC) joint of left thumb: Code(s): M18.12 - Unilateral primary osteoarthritis of first carpometacarpal joint, left hand Category: Medical (3) Pain in both forearms: Code(s): M79.632 - Pain in left forearm; M79.631 - Pain in right forearm Category: Medical Plan Assessment & Plan: 1. Left Basal joint arthritis This is her chief complaint today 2. Right Basal joint arthritis Based on history & PE 3. Possible left [place] Equivocal Finkelsten test on the left 4. Bilateral episodic forearm pain I educated her about this condition I educated her about operative and non-operative treatment options. I am not recommending surgery at this time. She has a Hx of chest chest and neck tightness & radiating shoulder pain following Cortisone injections into her shoulder in the past. She says this usually occurred a couple of hours after her shoulder injection and resolved at home. She never needed to go to the hospital for this. She was most symptomatic between August in January. Since January her symptoms have improved . No injection warranted today. She may benefit from a basal joint steroid injection in the future, if her symptoms worse I discussed activity modification at length, they should limit or avoid any heavy or repetitive pinching or gripping activities She was fitted for bilateral comfort cool braces to wear with daily activity She should work on ROM exercises, and avoid any gripping or strengthening activities I discussed the use of assistive devices for daily activity I ordered OT hand therapy to work on stretching & normalizing function, specifically for the forearm pain She can follow up prn Scribed for Shey Tapia MD by Kale Nagel, medical genetics director, on 05/01/25 at 10:30 AM, EST. Orders: Orders OT Evaluation and Treatment Today M18.11 - Unilateral primary osteoarthritis of first carpometacarpal joint, right hand, M18.12 - Unilateral primary osteoarthritis of first carpometacarpal joint, left hand, M79.631 - Pain in right forearm, M79.632 - Pain in left forearm XR wrist LT min 3V Today M25.532 - Pain in left wrist Coding Level of Care Code New Pt Level 4 (41524) Diagnoses Arthritis of carpometacarpal (CMC) joint of right thumb M18.11 Arthritis of carpometacarpal (CMC) joint of left thumb M18.12 Pain in both forearms M79.632; M79.631
== END 2025-05-01 10:58 | disposition home or self-care (01) ==
LOC: HO.HOS 09:51
PROVIDERS: PCP Internal Medicine; Visit Provider Orthopaedic Surgery
DX: M18.0 Bilateral primary osteoarthritis of first carpometacarpal joints (principal); M79.632 Pain in left forearm; M79.631 Pain in right forearm
CPT/HCPCS: 99203

== ENCOUNTER → 2025-05-01 10:16 | Outpatient (BNV) | payer OTHER, SELFPAY | PROVIDERS: Visit Provider Radiology Diagnostic Radiology | DX: M18.12 Unilateral primary osteoarthritis of first carpometacarpal joint, left hand (principal) | CPT/HCPCS: 73110 ==

== ENCOUNTER 2025-05-31 13:31 | Outpatient (RCR) | payer OTHER, SELFPAY ==
--- NOTE | 2025-05-08 15:11 | MHC.OT.EP ---
[facility] Office [address] [phone] F: [phone] F: [phone] Occupational Therapy Plan of Care Patient Name: Yecenia Mercado Date of Evaluation: 05/08/25 Diagnosis: B/L OA OF CMCs Pain Location: BASE OF THUMB: ACHY L 2/10 AT REST, R 0/10 AT REST L 5-6/10 WITH USE, R 0/10 WITH USE Pain Score: 0-6/10 Pain Scale Used: Numeric (0 - 10) Aggravating Factors: LIFTING, CARRYING, REPETITIVE ACTIVITIES Alleviating Factors: COMFORT COOL ORTHOSIS, WARM WATER SOAKS HAS TRIALLED VOLTAREN GEL WITH POSSIBLE INCREASED INFLAMMATION Assessment: MS MERCADO REPORTS A 9 MONTH HISTORY OF PAIN TO BASE OF B/L THUMBS. Pt HAD XRAYS TAKEN WHICH SHOWS MODERATE TO SEVERE OA AT CMCs. SHE WAS PROVIDED WITH PREFAB COMFORT COOL ORTHOSES BY DR DALEY AND REPORTS SOME MILD RELIEF. A 59% LIMITATION IS REPORTED PER THE QUICK DASH ASSESSMENT WITH DIFFICULTIES PERFORMING IADLs INCLUDING COOKING, CROCHETING, AND PLAYING THE GUITAR. HER GOAL WOULD BE TO SAFELY HOLD A CUP OF TEA. ONGOING SKILLED OT IS WARRANTED TO ADDRESS AREAS MENTIONED BELOW. Frequency and Duration: The patient will be seen 1X/WEEK FOR 4 WEEKS Short Term Goals: SEE BELOW Director Advanced Goals: IND HEP IND ORTHOSIS USE IND JT PROTECTION STRATEGIES AND ACTIVITY MODIFICATIONS, EXPLORE AE/AT REPORT <3/10 PAIN WITH IADLs USING PROPER BODY MECHANICS AND COMPENSATORY STRATEGIES Treatment Plan: Therapeutic Exercise Therapeutic Activity Home Exercise Program Splinting Neuro Re-ed Patient Education Desensitization/Sensory Re-ed Edema Control ADL Training Ultrasound NMES Iontophoresis Paraffin Fluidotherapy MHP Cold Packs Joint Mobilization Soft Tissue Mobilization Kinesiotaping Other (see comments) Electronically Signed By: LONDON CHONG OTR/L Please Sign and return to therapist. Thank you once again for your referral.
--- NOTE | 2025-05-31 15:08 | MHC.OT.DC ---
[facility] Office [address] [phone] F: [phone] F: [phone] Occupational Therapy Discharge Note Patient Name: Yecenia Mercado Provider: Shey Tapia Diagnosis: B/L OA OF CMCs Date of Evaluation: 05/08/25 Date of Discharge: 05/31/25 Treatments to Date: 3 Cancellations to Date: 1 No Shows to Date: 0 Discharge Status: Achieved Goals Improved Function Discharge Summary: MS MERCADO HAS MET GOALS, PAIN HAS IMPROVED. SHE DEMONSTRATES GOOD JT PROTECTION STRATEGIES AND KNOWLEDGE OF PACING/ ACTIVITY MODIFICATIONS. USING ORTHOSIS NEEDED FOR L THUMB PROTECTION. NO ADDITIONAL OT NEEDS. D/C OT Electronically Signed By: LONDON CHONG OTR/L Reviewed/agree with student documentation: N/A Therapist: Please Sign and return to therapist, thank you for your referral.
== END 2025-05-31 15:05 | disposition home or self-care (01) ==
LOC: HO.OT 13:31
PROVIDERS: PCP Internal Medicine; Visit Provider Orthopaedic Surgery
DX: M18.0 Bilateral primary osteoarthritis of first carpometacarpal joints (principal); M79.632 Pain in left forearm
CPT/HCPCS: 29130; 97110; 97140; 97166; 97760

== ENCOUNTER 2025-08-16 10:27 | Outpatient (AMB) | payer OTHER, SELFPAY ==
--- NOTE | 2025-08-16 10:39 | MHC.PC.OV ---
Vital Signs 08/16/25 10:45 Height 5 ft 3 in Weight 220 lb 2 oz BMI 39.0 BP 116/72 Blood Pressure Location Rt brachial Position Sitting Respiration 14 Pulse 62 Pulse Source Pulse Oximeter Pulse Oximetry (%) 95 Oxygen Delivery Method Room Air Intake Visit Reasons: cpe Intake Note: Physical. Has cataract surgery in August Sap Payroll Consultant Required: No Allergies cortisone Allergy (Intermediate, Verified 08/16/25 10:47) Chest Pain adhesive tape Allergy (Verified 08/16/25 10:47) Itching Tobacco use date assessed: 08/16/25 Dental Screening Dental Screen Date: 02/25/25 HPI HPI Comments History of Present Illness Details The patient is a 64 year old female with a past medical history of afibrillation, hypertension, hyperlipidemia TARIQ, depression/anxiety, left breast cancer presenting for physical exam/pre op evaluation. Upcoming cataract surgery CV: On eliqus, losartan, lopressor, simvastatin. Follows with [facility]. Denies chest pain, shortness of breath. Seen 04/2025 with echocardiogram thereafter. she can walk 1/2 mile climb 2 flights of stairs. She has tolerated anesthesia well in the past TARIQ: on cpap. Heme/Onc: History of breast cancer. Breast surgeon, oncologist released her from surveillance. Still gets annual mammograms-had this fall at [facility] MSK: Saw [facility] hand. Pain in bilateral wrist, base of thumb and as well in lateral dorsal wrist. Likes to hill/knit but has had to stop. She is intolerant of cortisone injections. GERD is stable on omeprazole. BH: On lexapro 5mg daily History of abnormal tfts. She has been intolerant of levothyroxine in the past-palpitations Catarcts-upcoming surgeries. History of DCIS Mammo ~05/2025 Colonoscopy 2021. 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 NAD EYES: EOMI. Anicteric. HENT: Moist mucous membranes. No scleral icterus. No cervical lymphadenopathy. LUNGS: Clear to auscultation bilaterally. CARDIOVASCULAR: Regular rate and rhythm. No JVD. ABDOMEN: Soft, non-tender +bs EXTREMITIES: No edema. Non-tender. SKIN: scattered nevi NEUROLOGIC: No focal neurological deficits. CN II-XII grossly intact PSYCHIATRIC: Cooperative. Appropriate mood and affect PFSH Medical History Sleep apnea Atrial fibrillation History of left breast cancer Endometriosis Hernia Surgical History H/O total mastectomy of left breast Hx laparoscopic cholecystectomy Family History Mother Alcohol abuse Brother Alcohol abuse Other Substance abuse Social History Household Members: Spouse Housing: House Are you a primary director of career resources to a significant other at home: No (for each other) Do you presently have visiting nurse or other home services: No Alcohol intake: current Patient Tobacco Use Status: Never used Tobacco e-Cigarette/Vaping Use: Never Used service: No Current occupational status: retired 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 Cognitive needs: No Hearing needs: No Vision needs: Yes (glasses) Questionnaire Thrive Questionnaire Date Thrive assessed: 02/19/25 I am a: Patient What is your living situation today?: I have a steady place to live Within the past 12 months, did the food you bought not last and you didn't have the money to get more?: Never true Within the past 12 months, did you worry whether your food would run out before you got money to buy more?: Never true Do you have trouble paying for medicines?: No Do you have trouble getting transportation to medical appointments?: No Do you have trouble paying your heating and electricity bill?: No Do you have trouble taking care of your child, family member or friend?: No Do you have trouble with day-to-day activities such as bathing, preparing meals, shopping, managing finances, etc.?: No Are you currently unemployed and looking for a job?: No Are you interested in more education?: No Please select the resources that you would like help with: None Currently or been in a relationship where the following occur: No concerns reported THRIVE Score: 0 AUDIT C Alcohol Use Questionnaire (AUDIT-C) 1. How often do you have a drink containing alcohol?: Monthly or less 2. How many drinks containing alcohol do you have on a typical day when you are drinking?: 1 or 2 3. How often do you have six or more drinks on one occasion?: Never Total Score: 1 FREDDIE-7 AMB Questionnaire FREDDIE-7 Date FREDDIE - 7 assessed: 02/25/25 Source: Developed by Drs. Ramiro Boyd, Terri Zhang, Giancarlo Otoole and colleagues, with an educational ed from [employer]. Physical exam (Primary Care) Vital Signs: Last Vital Signs Pulse 62 08/16/25 10:45 Resp 14 08/16/25 10:45 BP 116/72 08/16/25 10:45 Pulse Ox 95 08/16/25 10:45 Oxygen Delivery Method Room Air 08/16/25 10:45 BMI result Body Mass Index 39.0 Tobacco/Smoking Status: Tobacco use Status Tobacco use date assessed 08/16/25 08/16/25 10:40 Patient Tobacco Use Status Never used Tobacco 08/16/25 10:40 e-Cigarette/Vaping Use Never Used 08/16/25 10:40 Thrive Assessment: Date of Thrive Assessment Date Thrive assessed 02/19/25 08/16/25 10:40 Currently or been in a relationship where the following occur: No concerns reported Coding Level of Care Code Est Pt Level 4 (13643) Est Pt Prev Care 40-64y(31953) Diagnoses Physical exam Z00.00 Prediabetes R73.03 Hypothyroidism, unspecified type E03.9 Hypothyroidism type: unspecified Atrial fibrillation and flutter I48.91; I48.92 Preoperative cardiovascular examination Z01.810 Assessment & Plan Assessment & Plan (1) Physical exam: Code(s): Z00.00 - Encounter for general adult medical examination without abnormal findings (2) Prediabetes: Code(s): R73.03 - Prediabetes Category: Medical (3) Hypothyroid: Code(s): E03.9 - Hypothyroidism, unspecified Category: Medical Qualifiers: Hypothyroidism type: unspecified Qualified Code(s): E03.9 - Hypothyroidism, unspecified (4) Atrial fibrillation and flutter: Code(s): I48.91 - Unspecified atrial fibrillation; I48.92 - Unspecified atrial flutter Category: Medical (5) Preoperative cardiovascular examination: Code(s): Z01.810 - Encounter for preprocedural cardiovascular examination Plan 64 year old for CPE/cardiac assessment Interval history reviewed. Preventive measures for age discussed Chronic medical conditions are stable CV-stable BP. on chronic AC. No chest pain EKG without ischemic changes METS>/4 Ok to proceed with scheduled procedure without additional testing
[2025-08-16 10:45] VITALS: BP 116/72; PULSE 62; RESP 14; O2SAT 95; BMI 39.0
--- OUTSIDE RECORDS SUMMARY | 2025-08-16 11:59 | XMS_ITS | Encounter Summary ---
Author Organization [facility] Address [address] [place] [address] Care Team Providers Care Cyanide Pot Hardener Name Role Phone Yuki Cisse MD Primary Care Provider [phone] Encounter Details Date Type Department Care Team (Late st Contact Info) Description 08/09/2025 Results Follow-Up [facility] [address] [facility] [address] [place] [address] Myranda Boateng NP [address] [place] [address] [place] [id number] Social History Tobacco Use Types Packs/Day Years Used Date Smoking Tobacco: Never Smokeless Tobacco: Never Alcohol Use Standard Drinks/Week Comments No 0 (1 standard drink = 0.6 oz pur e alcohol) Housing Instability Answer Date Recorde d Are you worried that in the next 2 months you may not have stable housing? No 07/08/2025 Food Access & Nutrition Answer Date Rec orded Do you have access to a vari ety of food including fruits and vegetables? No 07/08/2025 Access to Healthcare Answer Date Record ed Within the last 3 months, ho w many times did you visit the emergency department for your medical care? 0 07/08/2025 Health Literacy Answer Date Recorded How often do you need to hav e someone help you when you read instructions, pamphlets, or other written material from your doctor or pharmacy? Rarely 07/08/2025 Caregiver: How often do you need to have someone help you when you read instructions, pamphlets, or other written material from your doctor or pharmacy? Not on file 07/08/2025 Financial Risk Answer Date Recorded How hard is it for you to pa y for the very basics like food, housing, medical care, and air conditioning / heating? Somewhat hard 07/08/2025 Transportation Answer Date Recorded Has the lack of transportati on kept you from meetings, work, or from getting things needed for daily living? No Has the lack of transportati on kept you from medical appointments or from getting medications? No 07/08/2025 Social Isolation Answer Date Recorded How often do you feel lonely or isolated from those around you? Sometimes 07/08/2025 Food Risk Answer Date Recorded Within the past 12 months we worried whether our food would run out before we got money to buy more. Never true 07/08/2025 Within the past 12 months th e food we bought just didn't last and we didn't have money to get more. Never true 07/08/2025 Dependent Care Answer Date Recorded Do you need help finding or paying for care for your loved ones. For example, children's literature professor or elderly care for an older adult? No 07/08/2025 Education Answer Date Recorded Do you think completing more education or training, like finishing a GED, going to college, or learning a trade, would be helpful for you? No 07/08/2025 Employment and Income Answer Date Recor ded During the last four weeks, have you been actively looking for work? No 07/08/2025 Living Situation Answer Date Recorded What is your living situation? Unrecognized valu e 07/08/2025 Interpersonal Safety Answer Date Record ed Physical Abuse Unrecognized value 06/27/2025 Verbal Abuse Unrecognized value 06/27/2025 Comments No Sex and Gender Information Value Date Recorded Sex Assigned at Not on file Legal Sex Female 11:23 PM EST Gender Identity Not on file Sexual Orientation Not on file documented as of this encounter Plan of Treatment Upcoming Encounters Date Type Department Care Team (Late st Contact Info) Description 09/18/2025 2:00 PM EST Office Visit Obstetrics and Gynecology [address] [phone] Selena Zapata, YURIDIA [address] [place] [address] documented as of this encounter Visit Diagnoses Not on filedocumented in this encounter Additional Health Concerns Assessment Noted Time PHQ-9 Depression Total Score: 0 07/08/20 9:16 AM EST documented as of this encounter Care Teams Cyanide Pot Hardener Relationship Specialty Start Date End Date Yuki Cisse MD [address] [place] [id number] PCP - General Internal Medicine 05/09/25 documented as of this encounter
--- OUTSIDE RECORDS SUMMARY | 2025-08-16 11:59 | XMS_ITS | Clinical Summary ---
Author Organization [facility] Prior to 01/26/[address] [place] [address] Care Team Providers Care Senior Data Scientist Name Role Phone Sveta Joshi Primary Care [...] age to complete this topic Care Teams Senior Data Scientist Relationship Specialty Start Date End Date Sveta Joshi PCP - General Internal Medicine 11/27/18
--- OUTSIDE RECORDS SUMMARY | 2025-08-16 11:59 | XMS_ITS | Clinical Summary ---
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 Letha l Result * Cervical Cancer Screening: HPV (10/14/2022) [facility] Cervical Cancer Screening: HPV Abstracted ,Negative Result [facility] Provider HEALTH MAINTENANCE Final Result * Hepatitis C Screening (04/26/2018) [facility] Hepatitis C Screening Abstracted Result [facility] Provider HEALTH MAINTENANCE Final Result from Last 3 Months or Most Recently Relevant to Health Maintenance Insurance [facility] PUBLIC [employer] Advance Directives Documents on File Type Date Recorded 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
== END 2025-08-16 11:32 | disposition home or self-care (01) ==
LOC: HO.HMCFM 10:27
PROVIDERS: PCP Internal Medicine; Visit Provider Internal Medicine
DX: Z00.00 Encounter for general adult medical examination without abnormal findings (principal); I48.91 Unspecified atrial fibrillation; I48.92 Unspecified atrial flutter; R73.03 Prediabetes; E03.9 Hypothyroidism, unspecified; Z01.810 Encounter for preprocedural cardiovascular examination

== ENCOUNTER → 2025-08-16 10:27 | Outpatient (BNVA) | payer OTHER, SELFPAY | PROVIDERS: PCP Internal Medicine; Visit Provider Internal Medicine | DX: Z00.00 Encounter for general adult medical examination without abnormal findings (principal); R73.03 Prediabetes; E03.9 Hypothyroidism, unspecified; I48.91 Unspecified atrial fibrillation; I48.92 Unspecified atrial flutter | CPT/HCPCS: 99396 ==